=== PATIENT | male | born 1975 | race African-American/Black ===

== ENCOUNTER 2018-07-01 17:34 | Emergency (ER) | payer OTHER ==
[~2018-07-01] VITALS: Ht 167.6 cm; Wt 97.5 kg
--- NOTE | ~2018-07-01 | EKG ---
[address] [place] [address] ELECTROCARDIOGRAM REPORT Name: IBRAHIMA GLASER MARIANA Room [facility]: [facility] [id number] Admission: 07/01/18 Attend Phys: Discharge: 07/01/18 Date of : 73 Report #: [id number] THIS REPORT FOR: //name// [facility] ED Test Date: 2018-07-01 Test Time: 18:45:25 Pat Name: IBRAHIMA GLASER Department: Room: Gender: M [employer] Architect: KIMBERLY : 1975 Requested By: Carolyne Mobley Order Number: [id number] MD: Andrea Azevedo Measurements Intervals [place] Rate: 98 P: 19 GA: 148 QRS: 6 QRSD: 91 T: -20 QT: 325 QTc: 415 Interpretive Statements Sinus rhythm Borderline T abnormalities, inferior leads No previous ECG available for comparison Electronically Signed On 07-02-2018 7:30:05 CDT by Andrea Azevedo [email or web address] <ELECTRONICALLY SIGNED> By: Andrea Azevedo MD, [facility] 07/02/18 0730 1845 1845 Andrea Azevedo MD, FACC /EPI
[2018-07-01] MEDS ORDERED: ADDERALL 20 MG20 M1 PO (17:44)
[2018-07-01 18:32] LABS: ABSOLUTE NEUTROPHILS 13.2 thou/uL (1.4-8.2); BASOPHILS 0.6 % (0.0-2.0); EOSINOPHILS 0.2 % (0.0-3.0); HEMATOCRIT 44.6 % (42.0-52.0); HEMOGLOBIN 15.7 gm/dL (14.0-18.0); LYMPHOCYTES 9.2 % (24.0-44.0); MCH 31.6 pg (26.0-34.0); MCHC 35.1 g/dL (28.0-37.0); MCV 89.9 fL (80.0-100.0); MONOCYTES 5.8 % (1.0-8.0); PLATELET COUNT 365 thou/uL (150-400); POLYS 84.2 % (36.0-66.0); RBC 4.96 mil/uL (4.50-6.00); RDW 13.8 % (10.5-14.5); WBC 15.7 thou/uL (4.0-11.0)
[2018-07-01 18:41] LABS: ANION GAP 6 mmol/L (7-16); BUN 13 mg/dL (7-18); CALCIUM 9.7 mg/dL (8.5-10.1); CHLORIDE 105 mmol/L (98-107); CO2 28 mmol/L (21-32); CREATININE 1.3 mg/dL (0.7-1.3); GLUCOSE 98 mg/dL (74-106); POTASSIUM 4.1 mmol/L (3.5-5.1); SODIUM 139 mmol/L (136-145)
[2018-07-01 18:49] LABS: ALBUMIN 4.3 g/dL (3.4-5.0); SGOT 18 U/L (15-37); SGPT 35 U/L (30-65); TOTAL BILIRUBIN 0.4 mg/dL (<0.1-1.0); TOTAL PROTEIN 7.6 g/dL (6.4-8.2); TROPONIN-I <0.06 ng/mL (<0.06)
[2018-07-01 19:17] VITALS: BP 158/106
== END 2018-07-01 19:23 | disposition home or self-care (01) ==
LOC: ER 17:34
PROVIDERS: Physician Assistant
DX: F41.9 Anxiety disorder, unspecified (principal); R06.00 Dyspnea, unspecified